=== PATIENT | female | born 1985 | race American Indian/Alaskan Native ===

== ENCOUNTER 2017-03-26 05:51 | Emergency (ER) | payer OTHER ==
[2017-03-26 05:51] VITALS: BMI 37.0
--- NOTE | 2017-03-26 06:10 | ED PDOC ---
Arrival/HPI - General Chief Complaint: Abdominal Pain Time Seen by Provider: 03/26/17 06:07 Historian: Patient - History of Present Illness Narrative History of Present Illness (Text): 03/26/17 06:07 Linda Negro is a 31 year old female, with no significant past medical history , who presents to the Emergency department brought in by EMS complaining of progressively worsening sharp RUQ pain since yesterday evening. Patient reports associated nausea with vomiting and diarrhea. Patient states she took Ibuprofen at home but denies any significant relief. Patient denies any fever, chills, chest pain, shortness of breath, urinary symptoms, back pain, neck pain, headache, dizziness, or any other complaints. Time/Duration: Other (yesterday evening) Symptom Onset: Gradual Symptom Course: Unchanged Activities at Onset: Rest, Light Context: Home Past Medical History - Provider Review Nursing Documentation Reviewed: Yes - Tetanus Immunization Tetanus Immunization: Unknown - Psychiatric Hx Substance Use: No - Surgical History Hx Section: Yes - Anesthesia Hx Anesthesia: No - Suicidal Assessment Feels Threatened In Home Enviroment: No Family/Social History - Physician Review Nursing Documentation Reviewed: Yes Family/Social History: Unknown Family HX Smoking Status: Current Some Days Smoker Hx Alcohol Use: Yes Hx Substance Use: No Allergies/Home Meds Allergies/Adverse Reactions: Allergies No Known Allergies Allergy (Verified 10/17/16 17:51) Review of Systems - Physician Review All systems were reviewed & negative as marked: Yes - Review of Systems Constitutional: Normal. absent: Fevers Eyes: Normal ENT: Normal Respiratory: Normal. absent: SOB, Cough Cardiovascular: Normal. absent: Chest Pain Gastrointestinal: Abdominal Pain, Diarrhea, Nausea, Vomiting Genitourinary Female: Normal. absent: Dysuria, Frequency, Hematuria, Urine Output Changes Musculoskeletal: Normal. absent: Back Pain, Neck Pain Skin: Normal. absent: Rash Neurological: Normal. absent: Headache, Dizziness Endocrine: Normal Hemo/Lymphatic: Normal Psychiatric: Normal Physical Exam Vital Signs Reviewed: Yes Vital Signs Temp Pulse Resp BP Pulse Ox 03/26/17 07:43 60 16 131/70 97 03/26/17 06:17 99.5 F 54 L 18 132/70 98 Temperature: Afebrile Blood Pressure: Normal Pulse: Regular Respiratory Rate: Normal Appearance: Positive for: Well-Appearing, Non-Toxic, Comfortable Pain Distress: None Mental Status: Positive for: Alert and Oriented X 3 - Systems Exam Head: Present: Atraumatic, Normocephalic Pupils: Present: PERRL Extroacular Muscles: Present: EOMI Conjunctiva: Present: Normal Mouth: Present: Moist Mucous Membranes Neck: Present: Normal Range of Motion Respiratory/Chest: Present: Clear to Auscultation, Good Air Exchange. No: Respiratory Distress, Accessory Muscle Use Cardiovascular: Present: Regular Rate and Rhythm, Normal S1, S2. No: Murmurs Abdomen: Present: Tenderness (ruq), Normal Bowel Sounds. No: Distention, Peritoneal Signs Back: Present: Normal Inspection Upper Extremity: Present: Normal Inspection. No: Cyanosis, Edema Lower Extremity: Present: Normal Inspection. No: Edema Neurological: Present: GCS=15, CN II-XII Intact, Speech Normal Skin: Present: Warm, Dry, Normal Color. No: Rashes Psychiatric: Present: Alert, Oriented x 3, Normal Insight, Normal Concentration Medical Decision Making ED Course and Treatment: 03/26/17 06:07 Impression: 31 year old female complaining of RUQ pain, nausea, vomiting, and diarrhea since yesterday evening. Differential Diagnosis include but are not limited to: biliary colic vs. gastroenteritis vs. abdominal pain Plan: -- Labs, lipase -- Urinalysis -- IV fluids -- Zofran -- Morphine -- Reassess and disposition Prior Visits: Notes and results from previous visits were reviewed. On 10/17/2016, pt was seen in the Emergency department for bilateral ear pain, sore throat, and chills. Pt was d/c home. Progress Notes: - Lab Interpretations Lab Results: 03/26/17 06:15 03/26/17 06:15 Lab Results 03/26/17 06:15: Sodium 140, Potassium 3.9, Chloride 106, Carbon Dioxide 25, Anion Gap 13, BUN 7, Creatinine 0.7, Est GFR ( Amer) > 60, Est GFR (Non- Af Amer) > 60, Random Glucose 103, Calcium 9.6, Total Bilirubin 1.5 H, AST 18, ALT 24, Alkaline Phosphatase 69, Total Protein 7.3, Albumin 4.1, Globulin 3.2, Albumin/Globulin Ratio 1.3, Lipase 40 03/26/17 06:15: Urine Color Yellow, Urine Appearance Sl cloudy, Urine pH 7.0, Ur Specific [place] 1.025, Urine Protein 30 H, Urine Glucose (UA) Negative, Urine Ketones Negative, Urine Blood Negative, Urine Nitrate Negative, Urine Bilirubin Negative, Urine Urobilinogen 1.0 H, Ur Leukocyte Esterase Negative, Urine RBC 0 - 2, Urine WBC 0 - 2, Ur Epithelial Cells 4 - 5, Amorphous Sediment Moderate, Urine Bacteria Rare, Urine HCG, Qual Negative 03/26/17 06:15: PT 10.4, INR 0.96, APTT 30.0 03/26/17 06:15: WBC 4.9, RBC 4.47, Hgb 14.9, Hct 41.9, MCV 93.7, MCH 33.3, MCHC 35.6, RDW 12.5, Plt Count 261, MPV 9.5, Gran % 78.1 H, Lymph % (Auto) 13.8 L, [place] % (Auto) 6.7 H, Eos % (Auto) 1.2 L, Baso % (Auto) 0.2, Gran # 3.84, Lymph # 0.7 L, [place] # 0.3, Eos # 0.1, Baso # 0.01 - RAD Interpretation Radiology Orders: 03/26/17 06:44 GALL BLADDER [US] Stat - Medication Orders Current Medication Orders: Discontinued Medications Sodium Chloride (Sodium Chloride 0.9%) 1,000 mls @ 100 mls/hr IV .Q10H STA Stop: 03/26/17 16:21 Last Admin: 03/26/17 06:29 Dose: 100 mls/hr Morphine Sulfate (Morphine) 2 mg IVP STAT STA Stop: 03/26/17 06:23 Last Admin: 03/26/17 06:34 Dose: 2 mg Ondansetron HCl (Zofran Inj) 4 mg IVP STAT STA Stop: 03/26/17 06:23 Last Admin: 03/26/17 06:34 Dose: 4 mg - Transfer of Care Patient signed out to Dr:: suki labs us and dispo - Scribe Statement The provider has reviewed the documentation as recorded by the Scribe Nichol Humphreys All medical record entries made by the Scribe were at my direction and personally dictated by me. I have reviewed the chart and agree that the record accurately reflects my personal performance of the history, physical exam, medical decision making, and the department course for this patient. I have also personally directed, reviewed, and agree with the discharge instructions and disposition. Disposition/Present on Arrival - Present on Arrival Any Indicators Present on Arrival: No History of DVT/PE: No History of Uncontrolled Diabetes: No Urinary Catheter: No History of Decub. Ulcer: No History Surgical Site Infection Following: None - Disposition Have Diagnosis and Disposition been Completed?: Yes Diagnosis: Abdominal pain Disposition: HOME/ ROUTINE Disposition Time: 07:00 Condition: GOOD Discharge Instructions (ExitCare): Abdominal Pain (ED) Additional Instructions: Ms Negro, thank you for letting us take care of you today. Your provider was Dr. Tyler. You were treated for Abdominal Pain. The emergency medical care you received today was directed at your acute symptoms. If you were prescribed any medication, please fill it and take as directed. It may take several days for your symptoms to resolve. Return to the Emergency Department if your symptoms worsen, do not improve, or if you have any other problems. Please contact your doctor or call one of the physicians/clinics you have been referred to that are listed on the Patient Visit Information form that is included in your discharge packet. Bring any paperwork you were given at discharge with you along with any medications you are taking to your follow up visit. Our treatment cannot replace ongoing medical care by a primary care provider (PCP) outside of the emergency department. Thank you for allowing the [facility] team to be part of your care today. If you had an X-Ray or CT scan: A Radiologist will review the ED reading if any change in treatment is needed we will contact you. If you had a blood, urine, or wound culture: It will take several days for the results, if any change in treatment is needed we will contact you. If you had an STI test: It will take 48 hours for the results. Please call after 1 week if you have not heard back. Prescriptions: Aluminum Hydroxide/Magnesium H [Maalox 30 ml] 30 ml PO Q8 #1 bottle Ranitidine HCl [Zantac] 150 mg PO BID PRN #30 tablet PRN Reason: Pain, Mild (1-3) Referrals: Sylvia Lopes MD [Staff Provider] - Follow up with primary Boyd HERRERA,MD E[place] [Medical Doctor] - Follow up with primary Forms: [employer] (Lithuanian), WORK NOTE
[2017-03-26 06:17] VITALS: TEMP 99.5
[2017-03-26] MEDS ORDERED: Morphine 2 mg/ml ISec IVP STA (06:22)
[2017-03-26] MEDS ORDERED: Sodium Chloride 0.9% 1,000 ML IV STA (06:22)
[2017-03-26 06:29] LABS: ADD MANUAL DIFF? NO
[2017-03-26 06:41] LABS: URINE BILIRUBIN NEGATIVE (NEGATIVE); URINE BLOOD NEGATIVE (NEGATIVE); URINE GLUCOSE (UA) NEGATIVE (NEGATIVE); URINE KETONE NEGATIVE (NEGATIVE); URINE LEUKOCYTE ESTERASE NEGATIVE Leu/uL (NEGATIVE); URINE PROTEIN 30 mg/dL (<30 mg/dL)
[2017-03-26 06:52] LABS: ALB/GLOB RATIO 1.3 (1.1-1.8); ALKALINE PHOSPHATASE 69 U/L (38-133); ALT/SGPT 24 U/L (7-56); AST/SGOT 18 U/L (15-39); BILIRUBIN,TOTAL 1.5 mg/dL (0.2-1.3); BLOOD UREA NITROGEN 7 mg/dL (7-21); CALCIUM 9.6 mg/dL (8.4-10.5); CARBON DIOXIDE 25 mmol/L (21-33); CHLORIDE 106 mmol/L (98-107); GFR AFRICAN-AMERICAN > 60; GLUCOSE,RANDOM 103 mg/dL (70-110); LIPASE 40 U/L (23-300); POTASSIUM 3.9 mmol/L (3.6-5.0); SODIUM 140 mmol/L (132-148); TOTAL PROTEIN 7.3 g/dL (5.8-8.3)
[2017-03-26 06:53] LABS: INR 0.96 (0.93-1.08)
[2017-03-26 06:58] LABS: URINE APPEARANCE SL CLOUDY (CLEAR); URINE COLOR YELLOW (YELLOW)
[2017-03-26 06:59] LABS: BASO # 0.01 K/mm3 (0.0-2.0); BASO % 0.2 % (0.0-3.0); EOS # 0.1 (0.0-0.7); EOS % 1.2 % (1.5-5.0); GRAN # 3.84 (1.4-6.5); GRAN % 78.1 % (50.0-68.0); HEMATOCRIT 41.9 % (36.0-48.0); LYMPH # 0.7 (1.2-3.4); LYMPH % 13.8 % (22.0-35.0); MEAN CELL VOLUME 93.7 fL (80.0-105.0); MEAN CORPUSCULAR HEMOGLOBIN 33.3 pg (25.0-35.0); MEAN CORPUSCULAR HGB CONC 35.6 g/dl (31.0-37.0); MEAN PLATELET VOLUME 9.5 fl (7.0-11.0); MONO # 0.3 (0.1-0.6); MONO % 6.7 % (1.0-6.0); PLATELET COUNT 261 10^3/uL (120.0-450.0); RED CELL DISTRIBUTION WIDTH 12.5 % (11.5-14.5); WHITE BLOOD COUNT 4.9 10^3/ul (4.5-11.0)
[2017-03-26 07:00] LABS: URINE AMORPHOUS SEDIMENT MODERATE; URINE BACTERIA RARE (NEG); URINE RBC 0 - 2 /hpf (0-2); URINE WBC 0 - 2 /hpf (0-6)
--- NOTE | 2017-03-26 07:00 | ED PDOC ---
Physical Exam Vital Signs Temp Pulse Resp BP Pulse Ox 03/26/17 06:17 99.5 F 54 L 18 132/70 98 Medical Decision Making ED Course and Treatment: 03/26/17 07:00 Patient signed out to me by Dr. Smith pending ultrasound, reassessment, and final disposition. 31 year old female presented with right upper quadrant pain. 03/26/17 07:32 On reevaluation, patient's abdomen is non-tender. 03/26/17 07:39 Ultrasound is negative as read by me. Patient's tolerating PO with no vomiting. Patient states she feels better and will follow up with her PMD. Instructed patient to return if symptoms worsen. - Lab Interpretations Lab Results: 03/26/17 06:15 03/26/17 06:15 Lab Results 03/26/17 06:15: Sodium 140, Potassium 3.9, Chloride 106, Carbon Dioxide 25, Anion Gap 13, BUN 7, Creatinine 0.7, Est GFR ( Amer) > 60, Est GFR (Non- Af Amer) > 60, Random Glucose 103, Calcium 9.6, Total Bilirubin 1.5 H, AST 18, ALT 24, Alkaline Phosphatase 69, Total Protein 7.3, Albumin 4.1, Globulin 3.2, Albumin/Globulin Ratio 1.3, Lipase 40 03/26/17 06:15: Urine Color Yellow, Urine Appearance Sl cloudy, Urine pH 7.0, Ur Specific [place] 1.025, Urine Protein 30 H, Urine Glucose (UA) Negative, Urine Ketones Negative, Urine Blood Negative, Urine Nitrate Negative, Urine Bilirubin Negative, Urine Urobilinogen 1.0 H, Ur Leukocyte Esterase Negative, Urine RBC 0 - 2, Urine WBC 0 - 2, Ur Epithelial Cells 4 - 5, Amorphous Sediment Moderate, Urine Bacteria Rare, Urine HCG, Qual Negative 03/26/17 06:15: PT 10.4, INR 0.96, APTT 30.0 03/26/17 06:15: WBC 4.9, RBC 4.47, Hgb 14.9, Hct 41.9, MCV 93.7, MCH 33.3, MCHC 35.6, RDW 12.5, Plt Count 261, MPV 9.5, Gran % 78.1 H, Lymph % (Auto) 13.8 L, [place] % (Auto) 6.7 H, Eos % (Auto) 1.2 L, Baso % (Auto) 0.2, Gran # 3.84, Lymph # 0.7 L, [place] # 0.3, Eos # 0.1, Baso # 0.01 - RAD Interpretation Radiology Orders: 03/26/17 06:44 GALL BLADDER [US] Stat - Medication Orders Current Medication Orders: Sodium Chloride (Sodium Chloride 0.9%) 1,000 mls @ 100 mls/hr IV .Q10H STA Stop: 03/26/17 16:21 Last Admin: 03/26/17 06:29 Dose: 100 mls/hr Discontinued Medications Morphine Sulfate (Morphine) 2 mg IVP STAT STA Stop: 03/26/17 06:23 Last Admin: 03/26/17 06:34 Dose: 2 mg Ondansetron HCl (Zofran Inj) 4 mg IVP STAT STA Stop: 03/26/17 06:23 Last Admin: 03/26/17 06:34 Dose: 4 mg Disposition/Present on Arrival - Present on Arrival Any Indicators Present on Arrival: No History of DVT/PE: No History of Uncontrolled Diabetes: No Urinary Catheter: No History of Decub. Ulcer: No History Surgical Site Infection Following: None - Disposition Have Diagnosis and Disposition been Completed?: Yes Diagnosis: Abdominal pain Disposition: HOME/ ROUTINE Disposition Time: 07:39 Patient Plan: Discharge Patient Problems: Current Active Problems Problem Status Onset Abdominal pain Acute Condition: IMPROVED Discharge Instructions (ExitCare): Abdominal Pain (ED) Additional Instructions: Ms Negro, thank you for letting us take care of you today. Your provider was Dr. Tyler. You were treated for Abdominal Pain. The emergency medical care you received today was directed at your acute symptoms. If you were prescribed any medication, please fill it and take as directed. It may take several days for your symptoms to resolve. Return to the Emergency Department if your symptoms worsen, do not improve, or if you have any other problems. Please contact your doctor or call one of the physicians/clinics you have been referred to that are listed on the Patient Visit Information form that is included in your discharge packet. Bring any paperwork you were given at discharge with you along with any medications you are taking to your follow up visit. Our treatment cannot replace ongoing medical care by a primary care provider (PCP) outside of the emergency department. Thank you for allowing the [facility] team to be part of your care today. If you had an X-Ray or CT scan: A Radiologist will review the ED reading if any change in treatment is needed we will contact you. If you had a blood, urine, or wound culture: It will take several days for the results, if any change in treatment is needed we will contact you. If you had an STI test: It will take 48 hours for the results. Please call after 1 week if you have not heard back. Prescriptions: Aluminum Hydroxide/Magnesium H [Maalox 30 ml] 30 ml PO Q8 #1 bottle Ranitidine HCl [Zantac] 150 mg PO BID PRN #30 tablet PRN Reason: Pain, Mild (1-3) Referrals: Sylvia Lopes MD [Staff Provider] - Follow up with primary Boyd HERRERA,MD E[place] [Medical Doctor] - Follow up with primary Forms: [employer] (Swedish), WORK NOTE
[2017-03-26 07:52] VITALS: BP 131/70; PULSE 60; RESP 16; O2SAT 97
--- NOTE | 2017-03-26 13:42 | US ---
HISTORY: ruq pain COMPARISON: None. TECHNIQUE: Sonographic evaluation of the right upper quadrant of the abdomen. FINDINGS: LIVER: Measures 15.4 x 10.9 x 9.6 cm in length. Normal echogenicity of the liver parenchyma. No mass. No intrahepatic bile duct dilatation. GALLBLADDER: Unremarkable. No gallstones. COMMON BILE DUCT: Measures 5 mm. No stones. No dilatation. PANCREAS: Unremarkable as visualized. No mass. No ductal dilatation. The pancreatic duct measures 2.7 mm RIGHT KIDNEY: Measures 11.9 x 5.3 x 5.5 cm in length. Normal echogenicity. No calculus, mass, or hydronephrosis. AORTA: No aneurysmal dilatation. IVC: Unremarkable. OTHER FINDINGS: None . IMPRESSION: Negative study
== END 2017-03-26 08:16 | disposition home or self-care (01) ==
LOC: ED 05:51
DX: R10.11 Right upper quadrant pain (principal)
CPT/HCPCS: 76705; 80053; 81001; 83690; 84703; 85025; 85610; 85730; 96361; 96374; 96375; 99284; J2270; J2405; J7040

== ENCOUNTER 2018-08-15 16:33 | Emergency (ER) | payer SELFPAY ==
[2018-08-15 16:39] VITALS: BMI 38.4
--- NOTE | 2018-08-15 17:27 | ED PDOC ---
Arrival/HPI - General Chief Complaint: Chest Pain Time Seen by Provider: 08/15/18 16:35 Historian: Patient - History of Present Illness Narrative History of Present Illness (Text): 08/15/18 16:45 33 year old female, with no significant past medical history and history of tobacco use, presents to the ED complaining of chest pain since 5 days. Patient describes the pain as a tightness to the middle of the chest with no exacerba ting or alleviating factors. Patient denies any associated SOB and denies similar symptoms in the past. Patient denies any family history of OR under 50 years of age. Patient denies any history of diabetes or hypertension. Patient denies any other medical complaints. Patient denies any fever, nausea, vomiting, abdominal pain, neck pain, back pain, headache, dizziness or any other complaints. Time/Duration: < week Symptom Onset: Gradual Symptom Course: Unchanged Quality: Tightness Activities at Onset: Light Context: Home Past Medical History - Provider Review Nursing Documentation Reviewed: Yes - Tetanus Immunization Tetanus Immunization: Unknown - Psychiatric Hx Substance Use: No - Surgical History Hx Section: Yes - Anesthesia Hx Anesthesia: No - Suicidal Assessment Feels Threatened In Home Enviroment: No Family/Social History - Physician Review Nursing Documentation Reviewed: Yes Family/Social History: Unknown Family HX Smoking Status: Current Some Days Smoker Hx Alcohol Use: Yes Hx Substance Use: No Allergies/Home Meds Allergies/Adverse Reactions: Allergies No Known Allergies Allergy (Verified 08/15/18 16:39) Home Medications: Home Meds Medication Instructions Recorded Confirmed No Known Home Med 08/15/18 08/15/18 Review of Systems - Review of Systems Constitutional: absent: Fevers Eyes: absent: Vision Changes Respiratory: absent: SOB, Cough Cardiovascular: Chest Pain. absent: SY Gastrointestinal: absent: Abdominal Pain, Diarrhea, Nausea, Vomiting Genitourinary Female: absent: Dysuria, Urine Output Changes Musculoskeletal: absent: Back Pain, Neck Pain Skin: absent: Rash Neurological: absent: Headache, Dizziness Psychiatric: absent: Anxiety Physical Exam Vital Signs Temp Pulse Pulse Resp BP Pulse Ox 08/15/18 16:46 98.3 F 80 19 125/67 100 08/15/18 16:43 84 Pulse: Regular Appearance: Positive for: Well-Appearing Pain Distress: None Mental Status: Positive for: Alert and Oriented X 3 - Systems Exam Head: Present: Atraumatic, Normocephalic Pupils: Present: PERRL Extroacular Muscles: Present: EOMI Conjunctiva: Present: Normal Neck: Present: Normal Range of Motion Respiratory/Chest: Present: Clear to Auscultation, Good Air Exchange. No: Respiratory Distress, Accessory Muscle Use Cardiovascular: Present: Regular Rate and Rhythm, Normal S1, S2. No: Murmurs Abdomen: No: Tenderness, Distention, Peritoneal Signs Back: Present: Normal Inspection Upper Extremity: Present: Normal Inspection. No: Cyanosis, Edema Lower Extremity: Present: Normal Inspection. No: Edema Neurological: Present: GCS=15, CN II-XII Intact, Speech Normal Skin: Present: Warm, Dry, Normal Color. No: Rashes Psychiatric: Present: Alert, Oriented x 3, Normal Insight, Normal Concentration Medical Decision Making ED Course and Treatment: 08/15/18 17:21 Impression: 33 year old female presents to the ED complaining of chest pain since 5 days. Plan: -- EKG -- Labs -- CXR -- Aspirin Progress Notes: EKG reviewed, shows NSR at 76 bpm with sinus arrhythmia. QTC 504 and SD 188. Cxray negative 08/15/18 18:45 D-dimer and troponin negative. Patient's only risk factor for ACS is tobacco use. Patient instructed to follow-up with PMD for further evaluation. - RAD Interpretation Radiology Orders: 08/15/18 16:45 CHEST PORTABLE [RAD] Stat - EKG Interpretation Interpreted by ED Physician: Yes Type: 12 lead EKG - Medication Orders Current Medication Orders: Discontinued Medications Aspirin (Aspirin Chewable) 324 mg PO STAT STA Stop: 08/15/18 16:48 - Scribe Statement The provider has reviewed the documentation as recorded by the Scribe Emelia Dimas. All medical record entries made by the Scribe were at my direction and personally dictated by me. I have reviewed the chart and agree that the record accurately reflects my personal performance of the history, physical exam, medical decision making, and the department course for this patient. I have also personally directed, reviewed, and agree with the discharge instructions and disposition. Disposition/Present on Arrival - Present on Arrival Any Indicators Present on Arrival: No History of DVT/PE: No History of Uncontrolled Diabetes: No Urinary Catheter: No History of Decub. Ulcer: No History Surgical Site Infection Following: None - Disposition Have Diagnosis and Disposition been Completed?: Yes Diagnosis: Atypical chest pain Disposition: HOME/ ROUTINE Disposition Time: 18:45 Patient Plan: Discharge Patient Problems: Current Active Problems Problem Status Onset Atypical chest pain Acute Condition: GOOD Discharge Instructions (ExitCare): Costochondritis, Chest Pain That Is Not Caused by the Heart (DC), Chest Pain (ED) Additional Instructions: Follow-up with PMD within 2 days. Stop smoking. Return to ED if condition worsens. Forms: [employer] (Puerto Rican), WORK NOTE
[2018-08-15 17:30] LABS: ALB/GLOB RATIO 1.3 (1.1-1.8); ALT/SGPT 29 U/L (7-56); AST/SGOT 20 U/L (14-36); BLOOD UREA NITROGEN 9 mg/dL (7-21); CALCIUM 9.2 mg/dL (8.4-10.5); GFR NON-AFRICAN AMERICAN > 60
[2018-08-15 17:34] LABS: BASO # 0.01 K/mm3 (0.0-2.0); BASO % 0.2 % (0.0-3.0); EOS # 0.2 (0.0-0.7); EOS % 2.9 % (1.5-5.0); GRAN # 2.48 (1.4-6.5); GRAN % 44.4 % (50.0-68.0); HEMOGLOBIN 13.1 g/dL (12.0-16.0); LYMPH # 2.4 (1.2-3.4); LYMPH % 43.3 % (22.0-35.0); MEAN CELL VOLUME 94.7 fl (80.0-105.0); MEAN CORPUSCULAR HEMOGLOBIN 33.1 pg (25.0-35.0); MEAN CORPUSCULAR HGB CONC 34.9 g/dl (31.0-37.0); MEAN PLATELET VOLUME 9.4 fl (7.0-11.0); MONO # 0.5 (0.1-0.6); MONO % 9.2 % (1.0-6.0); RBC 3.96 10^6/uL (3.5-6.1); RED CELL DISTRIBUTION WIDTH 12.6 % (11.5-14.5); WHITE BLOOD COUNT 5.6 10^3/uL (4.5-11.0)
[2018-08-15 17:42] LABS: TROPONIN I < 0.01 ng/mL
--- NOTE | 2018-08-15 18:48 | RAD ---
Date of service: 08/15/2018 HISTORY: Chest pain COMPARISON: No prior. FINDINGS: LUNGS: No active pulmonary disease. PLEURA: No significant pleural effusion identified, no pneumothorax apparent. CARDIOVASCULAR: No atherosclerotic calcification present Normal. OSSEOUS STRUCTURES: No significant abnormalities. VISUALIZED UPPER ABDOMEN: Normal. OTHER FINDINGS: None. IMPRESSION: No active disease.
[2018-08-15 19:10] VITALS: BP 129/87; PULSE 83; RESP 18; TEMP 98.2; O2SAT 99
--- NOTE | 2018-08-15 19:16 | CARD ---
APPROVED REPORT Date of service: 08/15/2018 EKG Measurement Heart [id number] <Conclusion> Normal sinus rhythm with sinus arrhythmia Normal ECG
== END 2018-08-15 19:10 | disposition home or self-care (01) ==
LOC: ED 16:33
DX: R07.89 Other chest pain (principal)